=== PATIENT | male | born 1985 | race Caucasian/White ===

== ENCOUNTER 2017-02-12 18:04 | Emergency (ER) | payer MEDICAID ==
[~2017-02-12] VITALS: Ht 193 cm; Wt 98.0 kg
[2017-02-12 18:07] VITALS: BP 129/73; PULSE 53; RESP 15; TEMP 98.3; O2SAT 99
--- NOTE | 2017-02-12 19:07 | PD ---
HPI Chief Complaint: Flank/Kidney Pain Time Seen by Provider: 19:04 Travel History International Travel<30 days: No Contact w/Intl Traveler<30days: No Traveled to known affect area: No History of Present Illness HPI 31-year-old male with three-day history of right flank pain. He reports the pain as sharp and intermittent similar to previous kidney stones. He denies hematuria, dysuria, urgency or frequency. He denies fever or chills. Symptoms severity moderate. No aggravating or alleviating factors. PFSH Past Medical History Medical History: Denies Significant Hx Diminished Hearing: No Tetanus Vaccination: > 5 Years Past Surgical History Surgical History: No Previous Surgery Social History Alcohol Use: Yes (weekends) Tobacco Use: Yes (/ ppd) Substance Use: Yes (marijuana) Allergies-Medications (Allergen,Severity, Reaction): Coded Allergies: No Known Allergies (Unverified , 02/12/17) Reported Meds & Prescriptions Reported Meds & Active Scripts Active No Active Prescriptions or Reported Medications Review of Systems Except as stated in HPI: all other systems reviewed are Neg General / Constitutional: No: Fever Eyes: No: Visual changes HENT: No: Headaches Cardiovascular: No: Chest Pain or Discomfort Respiratory: No: Shortness of Breath Gastrointestinal: Positive: Other (right flank pain) Genitourinary: No: Dysuria Physical Exam Narrative GENERAL: Well-nourished, well-developed patient. SKIN: Focused skin assessment warm/dry. HEAD: Normocephalic. EYES: No scleral icterus. No injection or drainage. NECK: Supple, trachea midline. No JVD or lymphadenopathy. CARDIOVASCULAR: Regular rate and rhythm without murmurs, gallops, or rubs. RESPIRATORY: Breath sounds equal bilaterally. No accessory muscle use. GASTROINTESTINAL: Abdomen soft, non-tender, nondistended. MUSCULOSKELETAL: No cyanosis, or edema. BACK: Nontender without obvious deformity. Right CVA tenderness. Data Data Last Documented VS Vital Signs Date Time Temp Pulse Resp B/P Pulse Ox O2 Delivery O2 Flow Rate FiO2 02/12/17 18:07 98.3 53 15 129/73 99 Orders Urinalysis - C+S If Indicated (02/12/17 19:02) Ct Abd/Pel W/O Iv Contrast (02/12/17 19:02) Ketorolac Inj (Toradol Inj) (02/12/17 19:15) Labs Laboratory Tests Test 02/12/17 19:15 Urine Color YELLOW Urine Turbidity CLEAR Urine pH 6.0 Urine Specific [place] 1.031 Urine Protein TRACE mg/dL Urine Glucose (UA) NEG mg/dL Urine Ketones NEG mg/dL Urine Occult Blood SMALL Urine Nitrite NEG Urine Bilirubin NEG Urine Urobilinogen 2.0 MG/DL Urine Leukocyte Esterase NEG Urine RBC 9 /hpf Urine WBC 2 /hpf Urine Mucus FEW /lpf Microscopic Urinalysis Comment CULT NOT INDICATED MDM Medical Decision Making Medical Screen Exam Complete: Yes Emergency Medical Condition: Yes Differential Diagnosis Nephrolithiasis, pyelonephritis, lumbar musculature strain Narrative Course 31-year-old male with three-day history of right colicky flank pain. Patient presents this pain is similar to previous kidney stones. He denies fever or chills. UA [address] ABD/PELVIS: no renal stone. 7mm renal cyst with recommended nonemergent renal us, this was discussed with patient. Diagnosis Primary Impression: Flank pain Referrals: [facility] Additional Instructions: Take medication as prescribed. Follow-up with the [facility]. The ultrasound showed a 7 mm possible cyst on the right kidney he was recommended for nonemergent outpatient ultrasound. Scripts No Active Prescriptions or Reported Meds Disposition: 01 DISCHARGE HOME Condition: Stable Kortney Quarles Feb 12, 2017 19:07
[2017-02-12] MEDS ORDERED: KETOROLAC TROMETHAMINE 60 MG/2 ML (IM) VIAL IM ONE (19:15)
[2017-02-12 19:43] LABS: BLOOD, URINE SMALL (NEG); COMMENT (UR) CULT NOT INDICATED; CULTURE IF INDICATED CULT NOT INDICATED; GLUCOSE,URINE NEG (NEG); KETONE, URINE NEG (NEG); MUCUS URINE FEW /lpf (OCC); NITRITE,URINE NEG (NEG); URINE COLOR YELLOW (YELLW/STRAW)
--- NOTE | 2017-02-12 20:00 | RADRPT ---
EXAM DATE/TIME: 02/12/2017 19:28 [place] COMPARISON: No previous studies available for comparison. INDICATIONS : Right flank pain past 2-3 days. ORAL CONTRAST: No oral contrast ingested. RADIATION DOSE: 16.47 CTDIvol (mGy) MEDICAL HISTORY : None SURGICAL HISTORY : None. ENCOUNTER: Initial ACUITY: 3 days PAIN SCALE: 8/10 LOCATION: Right flank TECHNIQUE: Renal colic protocol. Volumetric scanning of the abdomen and pelvis was performed. Using automated exposure control and adjustment of the mA and/or kV according to patient size, radiation dose was kep t as low as reasonably achievable to obtain optimal diagnostic quality images. DICOM format image da ta is available electronically for review and comparison. FINDINGS: Right side: No evidence of hydronephrosis or calcified stones. No calcification along the course of the right ur eter. There is a 7 mm oval hyperdense area in the cortex of the upper pole which cannot be further c haracterized on a noncontrast study, but probably represents a hyperdense cyst. Left side: No evidence of hydronephrosis or calcified stones. No calcification along the course of the left ure ter. Bladder: Nondistended. No calcifications within the lumen. Other: No calcified gallstones. No dilated loops of small large bowel. The appendix is identified in the r ight lower quadrant and has a normal configuration. Nonspecific bilateral inguinal nodes measure up to 11 mm. CONCLUSION: 1. Negative renal colic CT without evidence of calcified stones or hydronephrosis. 2. 7 mm hyperdense oval lesion in the cortex of the upper pole right kidney. This could represent a hyperdense cyst. Recommend ultrasound for confirmation. Nathaniel Dai MD on February 12, 2017 at 19:54 Board Certified Radiologist. This report was verified electronically.
== END 2017-02-12 22:07 | disposition home or self-care (01) ==
LOC: NEPD 18:04
DX: R10.9 Unspecified abdominal pain (principal); F17.200 Nicotine dependence, unspecified, uncomplicated; Z87.442 Personal history of urinary calculi
CPT/HCPCS: 74176; 81001; 96372; 99285; J1885

== ENCOUNTER 2017-08-30 09:49 | Emergency (ER) | payer MEDICAID ==
[~2017-08-30] VITALS: Ht 190.5 cm; Wt 90.0 kg
[2017-08-30 09:50] VITALS: BP 170/74; PULSE 106; RESP 20; TEMP 97.2; O2SAT 97
[2017-08-30] MEDS ORDERED: VENTAER INH (10:42)
--- NOTE | 2017-08-30 11:02 | PD ---
HPI Chief Complaint: Laceration/Skin Injury Time Seen by Provider: 10:50 Travel History International Travel<30 days: No Contact w/Intl Traveler<30days: No Traveled to known affect area: No History of Present Illness HPI [id number] male presents for evaluation of a laceration to the right hand. It was sustained prior to arrival he was trying to chop mangoes with his left hand. The knife slipped. He has pain, throbbing, worse with palpation of the wound. Denies any numbness or tingling or weakness. Last tetanus vaccination within 5 years. No other complaints at this time. [facility] Past Medical History Asthma: Yes Diminished Hearing: No Past Surgical History Surgical History: No Previous Surgery Social History Alcohol Use: Yes (weekends) Tobacco Use: Yes (07/17 ppd) Substance Use: Yes (marijuana) Allergies-Medications (Allergen,Severity, Reaction): Coded Allergies: No Known Allergies (Unverified Adverse Reaction, Unknown, 08/30/17) Reported Meds & Prescriptions Reported Meds & Active Scripts Active Reported Ventolin Hfa 18 GM Inh (Albuterol Sulfate) 90 Mcg/Act Aer 2 Puff INH Q4-6H PRN Review of Systems Musculoskeletal: Positive: Pain, No: Limited ROM Skin: Positive Other (positive for laceration, pain) Neurologic: No: Paresthesia Physical Exam Narrative GENERAL: Well-developed well-nourished male in no acute distress SKIN: Warm and dry. 3 cm laceration on the palmar aspect of the right hand interdigital webspace between the first and second fingers. CARDIOVASCULAR: Regular rate and rhythm. No murmur appreciated. RESPIRATORY: No accessory muscle use. Clear to auscultation. Breath sounds equal bilaterally. Extremities: Skin as noted above. There is no evidence of tendon damage. The patient maintains full range of motion of the fingers of the right hand. Distal sensation is preserved in all fingers. Data Data Last Documented VS Vital Signs Date Time Temp Pulse Resp B/P (MAP) Pulse Ox O2 Delivery O2 Flow Rate FiO2 08/30/17 09:50 97.2 106 20 170/74 (106) 97 Orders Orders Ed Discharge Order (08/30/17 11:16) Wound Care (08/30/17 11:16) MDM Medical Decision Making Medical Screen Exam Complete: Yes Emergency Medical Condition: Yes Medical Record Reviewed: Yes Differential Diagnosis Cutaneous laceration, open fracture, neurovascular injury, tendon injury Narrative Course The patient verbally consents laceration repair. Patient was placed in a bulky dressing with AlumaFoam finger splint for his right thumb. He is stable for discharge. Procedures Procedure Narrative LACERATION LOCATION: Right hand LENGTH: 3 cm NUMBER OF STITCHES/NATALY: 9 REPAIR: The area of the laceration was prepped with Betadine and sterilely draped. The laceration was infiltrated with 1% lidocaine. The wound was copiously irrigated and explored without evidence of foreign body, tendon injury or neurovascular injury. The wound was closed using 4-0 PROLENE simple interrupted. This was a single layer repair. A sterile dressing was applied. The patient was advised to keep the dressing clean and dry. Patient tolerated the procedure well. Diagnosis Primary Impression: Hand laceration Additional Instructions: Wash the wound gently with soap and water and apply antibiotic cream, bandages, splint daily basis. Minimal use of right hand. Return in 14 aching days for suture removal. Med/Other Pt SpecificInfo: Wound Care Disposition: 01 DISCHARGE HOME Condition: Stable Mal Watson Aug 30, 2017 11:02
== END 2017-08-30 11:35 | disposition home or self-care (01) ==
LOC: NEPK 09:49
DX: S61.411A Laceration without foreign body of right hand, initial encounter (principal); J45.909 Unspecified asthma, uncomplicated; W26.0XXA Contact with knife, initial encounter; Y93.G1 Activity, food preparation and clean up; Y92.000 Kitchen of unspecified non-institutional (private) residence as the place of occurrence of the external cause; Z72.0 Tobacco use
CPT/HCPCS: 12002